=== PATIENT | male | born 1970 | race Caucasian/White ===

== ENCOUNTER 2016-12-29 09:15 | Day surgery (SDC) | payer OTHER ==
[~2016-12-29] VITALS: Ht 185.4 cm; Wt 136.5 kg
[~2016-12-29 09:15] MED LIST: ADVAIR 250/501 DISK IH; AMRIX ER PO; AMRIX30 MG PO; APRISO0.375 GM PO; CARVEDILOL3.125 MG PO; CIPRO500 MG PO; CLOBEX118 ML TP; COREG3.125 M1 PO; COREG6.25 M1 PO; CORLANOR PO; CORLANOR7.5 MG PO; CORTIZONE-10 PL57 GM TP; CORTIZONE-1028 GM TP; CYCLOBENZAPRINE10 MG PO; DAILY VITAMIN1 EAC8 PO; DELZICOL400 MG PO; DIGOXIN250 MCG PO; FENOFIBRATE54 M1 PO; FLAGYL500 MG PO; FLEXERIL10 MG PO; FUROSEMIDE40 MG PO; GLIPIZIDE5 MG PO; HUMULIN R500 UNIT/1 SC; HYDROCODON-ACE1 EAC7 PO; JANUVIA100 MG PO; KADIAN20 MG PO; LANOXIN250 MCG PO; LASIX40 MG PO; LEVAQUIN500 MG PO; LEVEMIR FL100 UNIT/1 SC; LIDODERM 5% P1 PATCH TD; LISINOPRIL2.5 MG PO; LOPRESSOR50 MG PO; LYRICA100 MG PO; LYRICA150 MG PO; METOPROLOL TAR100 MG PO; MOTRIN IB200 MG PO; NORCO 5/3251 TABLET PO; OMEPRAZOLE40 M1 PO; PERCOCET 5/31 TABLET PO; PROMETHAZINE HC25 M1 PO; PROVENTIL,2.5 MG/3 M IH; SPIRIVA1 INHALATI IH; TRADJENTA5 MG PO; VENTOLIN HFA18 GM IH; [UNRECOGNIZED DRUG - OTHER] PO; [UNRECOGNIZED DRUG - OTHER] PO; [UNRECOGNIZED DRUG - OTHER] TP
[2016-12-29 09:49] LABS: POINT-OF-CARE METER ID UU14174212
[2016-12-29 09:52] VITALS: BP 140/70
[2016-12-29] MEDS ORDERED: NORCO 5/3251 TABLET PO (12:55)
[2016-12-29 13:27] LABS: POINT-OF-CARE METER ID UU13113675
[2016-12-29 13:45] VITALS: BP 128/72
== END 2016-12-29 14:30 | disposition home or self-care (01) ==
LOC: SDC 09:15
PROVIDERS: Surgery
DX: L73.2 Hidradenitis suppurativa (principal); R20.0 Anesthesia of skin; E11.9 Type 2 diabetes mellitus without complications; Z79.4 Long term (current) use of insulin; J44.9 Chronic obstructive pulmonary disease, unspecified; I25.10 Atherosclerotic heart disease of native coronary artery without angina pectoris; I50.9 Heart failure, unspecified; D86.9 Sarcoidosis, unspecified; K21.9 Gastro-esophageal reflux disease without esophagitis; M81.0 Age-related osteoporosis without current pathological fracture; M45.9 Ankylosing spondylitis of unspecified sites in spine; M19.90 Unspecified osteoarthritis, unspecified site; F17.200 Nicotine dependence, unspecified, uncomplicated; Z88.6 Allergy status to analgesic agent; Z88.8 Allergy status to other drugs, medicaments and biological substances; Z91.09 Other allergy status, other than to drugs and biological substances; E66.9 Obesity, unspecified; Z68.39 Body mass index [BMI] 39.0-39.9, adult; Z80.8 Family history of malignant neoplasm of other organs or systems; Z80.1 Family history of malignant neoplasm of trachea, bronchus and lung
CPT/HCPCS: 80162; 82948; 88305; J0131; J0690; J2250; J3010; S0020

== ENCOUNTER 2017-03-30 21:50 | Emergency (ER) | payer OTHER ==
[~2017-03-30] VITALS: Ht 185.4 cm; Wt 141.0 kg
[2017-03-30 22:32] LABS: HEMATOCRIT 46.5 % (38.0-50.0); HEMOGLOBIN 16.1 G/DL (12.5-16.6); MCH 30.1 PG (29.0-34.0); MCHC 34.6 G/DL (30.0-36.0); MCV 87.1 FL (86-99); PLATELET COUNT 355 K/uL (156-360); RBC DIS.WIDTH-CV 13.3 % (11.8-14.6); RBC DIS.WIDTH-SD 42.1 % (39-53); RED BLOOD COUNT 5.34 M/uL (4.00-5.50); WHITE BLOOD COUNT 9.3 K/uL (4.1-10.2)
[2017-03-30 22:41] LABS: ALBUMIN 4.4 g/dL (3.2-4.8)
[2017-03-30 22:42] LABS: CHLORIDE 102 mEq/L (99-109); POTASSIUM 4.7 mEq/L (3.7-5.4); SODIUM 136 mEq/L (136-147)
[2017-03-30 22:44] LABS: GLUCOSE 327 mg/dL (70-99); TOTAL PROTEIN 8.8 g/dL (6.4-8.3)
[2017-03-30 22:46] LABS: TOTAL BILIRUBIN 0.4 mg/dL (0.0-1.0)
[2017-03-30 22:47] LABS: ALKALINE PHOSPHATASE 146 IU/L (3-129)
[2017-03-30 22:48] LABS: CREATININE 1.2 mg/dL (0.6-1.3); GFR ESTIMATE (CALCULATED) > 59 mL/min/ (58.99-99999)
[2017-03-30 22:49] LABS: AST (GOT) 29 IU/L (2-34); UREA NITROGEN (BUN) 15 mg/dL (9-23)
[2017-03-30 22:50] LABS: ALT (GPT) 47 IU/L (3-49)
[2017-03-31 01:01] LABS: C-REACTIVE PROTEIN 20.5 MG/L (0-10)
[2017-03-31 02:55] LABS: APPEARANCE CLEAR ((CLEAR)); BILIRUBIN NEGATIVE; BLOOD NEGATIVE; COLOR YELLOW ((YELLOW)); GLUCOSE (STRIP) >=500; KETONES NEGATIVE; LEUKOCYTES NEGATIVE; NITRITE NEGATIVE; PROTEIN (STRIP) NEGATIVE; SPECIFIC GRAVITY 1.021 (1.000-1.030); UCUL ADDED? NO; UROBILINOGEN 0.2 MG/DL (0.2-1.0)
[2017-03-31 04:02] VITALS: BP 114/58
== END 2017-03-31 04:15 | disposition home or self-care (01) ==
LOC: EME 21:50
DX: R10.9 Unspecified abdominal pain (principal); G89.29 Other chronic pain; R19.7 Diarrhea, unspecified; R11.2 Nausea with vomiting, unspecified; R42 Dizziness and giddiness; Z79.891 Long term (current) use of opiate analgesic; K76.0 Fatty (change of) liver, not elsewhere classified; Z90.49 Acquired absence of other specified parts of digestive tract; N28.1 Cyst of kidney, acquired; K40.20 Bilateral inguinal hernia, without obstruction or gangrene, not specified as recurrent; K57.30 Diverticulosis of large intestine without perforation or abscess without bleeding; M51.46 Schmorl's nodes, lumbar region; M45.9 Ankylosing spondylitis of unspecified sites in spine; J44.9 Chronic obstructive pulmonary disease, unspecified; I10 Essential (primary) hypertension; E11.9 Type 2 diabetes mellitus without complications; Z79.4 Long term (current) use of insulin; Z99.81 Dependence on supplemental oxygen; Z86.010 Personal history of colon polyps; F17.200 Nicotine dependence, unspecified, uncomplicated
CPT/HCPCS: 74176; 80053; 81003; 85027; 86140; 99281; 99285; J3010; J7030

== ENCOUNTER 2017-07-09 18:22 | Emergency (ER) | payer OTHER ==
[~2017-07-09] VITALS: Ht 185.4 cm; Wt 147.7 kg
[2017-07-09 18:40] LABS: HEMATOCRIT 49.9 % (38.0-50.0); HEMOGLOBIN 17.3 G/DL (12.5-16.6); MCH 31.5 PG (29.0-34.0); MCHC 34.7 G/DL (30.0-36.0); MCV 90.7 FL (86-99); PLATELET COUNT 228 K/uL (156-360); RBC DIS.WIDTH-CV 13.9 % (11.8-14.6); RBC DIS.WIDTH-SD 46.3 % (39-53); WHITE BLOOD COUNT 11.5 K/uL (4.1-10.2)
[2017-07-09 18:50] LABS: ALBUMIN 4.2 g/dL (3.2-4.8); CHLORIDE 97 mEq/L (99-109); POTASSIUM 4.4 mEq/L (3.7-5.4); SODIUM 138 mEq/L (136-147)
[2017-07-09 18:52] LABS: GLUCOSE 203 mg/dL (70-99); TOTAL PROTEIN 7.7 g/dL (6.4-8.3)
[2017-07-09 18:54] LABS: TOTAL BILIRUBIN 0.7 mg/dL (0.0-1.0)
[2017-07-09 18:56] LABS: ALKALINE PHOSPHATASE 113 IU/L (3-129); CREATININE 1.1 mg/dL (0.6-1.3); GFR ESTIMATE (CALCULATED) > 59 mL/min/ (58.99-99999)
[2017-07-09 18:57] LABS: UREA NITROGEN (BUN) 18 mg/dL (9-23)
[2017-07-09 18:58] LABS: AST (GOT) 47 IU/L (2-34)
[2017-07-09 18:59] LABS: ALT (GPT) 140 IU/L (3-49)
[2017-07-09 20:06] LABS: LIPASE 30 U/L (1.0-51.0)
[2017-07-09] MEDS ORDERED: PREDNISONE20 MG PO (21:06)
[2017-07-09 21:30] LABS: APPEARANCE CLEAR ((CLEAR)); BILIRUBIN NEGATIVE; BLOOD NEGATIVE; COLOR YELLOW ((YELLOW)); GLUCOSE (STRIP) >=500; KETONES NEGATIVE; LEUKOCYTES NEGATIVE; NITRITE NEGATIVE; PROTEIN (STRIP) NEGATIVE; SPECIFIC GRAVITY 1.032 (1.000-1.030); UCUL ADDED? NO; UROBILINOGEN 0.2 MG/DL (0.2-1.0)
[2017-07-09 22:31] VITALS: BP 128/74
== END 2017-07-09 22:32 | disposition home or self-care (01) ==
LOC: EME 18:22
PROVIDERS: Physician Assistant
DX: R10.30 Lower abdominal pain, unspecified (principal); R19.7 Diarrhea, unspecified; K50.90 Crohn's disease, unspecified, without complications; I10 Essential (primary) hypertension; I50.9 Heart failure, unspecified; E11.9 Type 2 diabetes mellitus without complications; Z79.4 Long term (current) use of insulin; J44.9 Chronic obstructive pulmonary disease, unspecified; K21.9 Gastro-esophageal reflux disease without esophagitis; M81.0 Age-related osteoporosis without current pathological fracture; G43.909 Migraine, unspecified, not intractable, without status migrainosus; M19.90 Unspecified osteoarthritis, unspecified site; F32.9 Major depressive disorder, single episode, unspecified; F17.200 Nicotine dependence, unspecified, uncomplicated; Z79.51 Long term (current) use of inhaled steroids; Z90.49 Acquired absence of other specified parts of digestive tract; Z85.9 Personal history of malignant neoplasm, unspecified; Z88.6 Allergy status to analgesic agent; Z88.8 Allergy status to other drugs, medicaments and biological substances; Z91.040 Latex allergy status
CPT/HCPCS: 74177; 80053; 81003; 82948; 83690; 85027; 99281; 99285; J2405; J7040; J7512

== ENCOUNTER 2017-08-12 22:50 | Inpatient (IN) | payer OTHER ==
[~2017-08-12] VITALS: Ht 185.4 cm; Wt 154.1 kg
[~2017-08-12 22:50] MED LIST changes: +PREDNISONE20 MG PO
[2017-08-12 23:31] LABS: BASOPHIL (%) 1.6 % (0-1); BASOPHIL COUNT 0.2 K/uL (0-0.1); EOSINOPHIL (%) 0.8 % (0-5); EOSINOPHIL COUNT 0.1 K/uL (0-0.3); HEMATOCRIT 48.3 % (38.0-50.0); IMMATURE GRANULOCYTE (%) 2.8 % (0.0-0.7); LYMPHOCYTE (%) 18.4 % (15-42); LYMPHOCYTE COUNT 2.1 K/uL (1.0-2.8); MCH 32.1 PG (29.0-34.0); MCHC 35.2 G/DL (30.0-36.0); MCV 91.1 FL (86-99); MONOCYTE COUNT 0.8 K/uL (0-0.8); NEUTROPHIL (%) 69.4 % (45-76); NEUTROPHIL COUNT 7.8 K/uL (1.8-6.4); RBC DIS.WIDTH-CV 13.6 % (11.8-14.6); RBC DIS.WIDTH-SD 45.5 % (39-53); WHITE BLOOD COUNT 11.2 K/uL (4.1-10.2)
[2017-08-12 23:32] LABS: PLATELET COUNT 233 K/uL (156-360)
[2017-08-12 23:42] LABS: ALBUMIN 3.8 g/dL (3.2-4.8); CHLORIDE 102 mEq/L (99-109); POTASSIUM 4.3 mEq/L (3.7-5.4); SODIUM 137 mEq/L (136-147)
[2017-08-12 23:44] LABS: GLUCOSE 231 mg/dL (70-99)
[2017-08-12 23:46] LABS: TOTAL BILIRUBIN 0.9 mg/dL (0.0-1.0)
[2017-08-12 23:47] LABS: SERUM ETHYL ALCOHOL < 10 mg/dL
[2017-08-12 23:48] LABS: ALKALINE PHOSPHATASE 104 IU/L (3-129); GFR ESTIMATE (CALCULATED) > 59 mL/min/ (58.99-99999)
[2017-08-12 23:49] LABS: AST (GOT) 80 IU/L (2-34); UREA NITROGEN (BUN) 14 mg/dL (9-23)
[2017-08-12 23:51] LABS: ALT (GPT) 138 IU/L (3-49); LIPASE 20 U/L (1.0-51.0)
[2017-08-12 23:54] LABS: TROP-I INTERPRETATION NEGATIVE; TROPONIN-I 0.01 ng/mL (0.0-0.30)
[2017-08-13 00:21] LABS: APPEARANCE CLEAR ((CLEAR)); BILIRUBIN NEGATIVE; BLOOD NEGATIVE; COLOR YELLOW ((YELLOW)); GLUCOSE (STRIP) >=500; KETONES NEGATIVE; LEUKOCYTES NEGATIVE; NITRITE NEGATIVE; PROTEIN (STRIP) 30; SPECIFIC GRAVITY 1.014 (1.000-1.030); UCUL ADDED? NO; UROBILINOGEN 0.2 MG/DL (0.2-1.0)
[2017-08-13 00:31] LABS: AMPHETAMINE NEGATIVE (500 ng/mL); BARBITURATES NEGATIVE (200 ng/mL); BENZODIAZEPINES NEGATIVE (150 ng/mL); BUPRENORPHINE NEGATIVE (10 ng/mL); COCAINE NEGATIVE (150 ng/mL); METHADONE NEGATIVE (200 ng/mL); METHAMPHETAMINE NEGATIVE (500 ng/mL); OPIATES (MORPHINE) PRESUMPTIVE POSITIVE (100 ng/mL); OXYCODONE NEGATIVE (100 ng/mL); PHENCYCLIDINE NEGATIVE (25 ng/mL); PROPOXYPHENE NEGATIVE (300 ng/mL); THC CANNABINOIDS NEGATIVE (50 ng/mL); TRICYCLIC ANTIDEPRESSANTS NEGATIVE (300 ng/mL)
[2017-08-13 04:14] VITALS: BP 95/54
[2017-08-13 07:40] VITALS: BP 115/58
[2017-08-13 11:17] LABS: C DIFF TOXIN NEGATIVE (NEGATIVE)
[2017-08-13 11:31] VITALS: BP 148/89
[2017-08-13 11:40] LABS: HEMATOCRIT 45.9 % (38.0-50.0); HEMOGLOBIN 15.3 G/DL (12.5-16.6); MCHC 33.3 G/DL (30.0-36.0); MCV 93.1 FL (86-99); PLATELET COUNT 222 K/uL (156-360); RBC DIS.WIDTH-SD 47.6 % (39-53); RED BLOOD COUNT 4.93 M/uL (4.00-5.50); WHITE BLOOD COUNT 8.1 K/uL (4.1-10.2)
[2017-08-13 12:06] LABS: ALBUMIN 3.5 G/DL (3.2-4.8); ALKALINE PHOSPHATASE 87 IU/L (3-129); ALT (GPT) 94 IU/L (3-49); AST (GOT) 54 IU/L (2-34); CHLORIDE 103 MEQ/L (99-109); CREATININE 0.9 MG/DL (0.6-1.3); GFR ESTIMATE (CALCULATED) > 59 mL/min/ (58.99-99999); GLUCOSE 264 mg/dL (70-99); POTASSIUM 4.8 MEQ/L (3.7-5.4); SODIUM 136 MEQ/L (136-147); TOTAL PROTEIN 6.1 G/DL (6.4-8.3); UREA NITROGEN (BUN) 12 mg/dL (9-23)
[2017-08-13] MEDS ORDERED: KADIAN30 MG PO (12:06)
[2017-08-13] MEDS ORDERED: APRISO0.375 GM PO (12:07)
[2017-08-13] MEDS ORDERED: CORLANOR7.5 MG PO (12:07)
[2017-08-13] MEDS ORDERED: DOXYCYCLINE MO100 M1 PO (12:08)
[2017-08-13] MEDS ORDERED: ERGOCALCIF50000 UNIT PO (12:08)
[2017-08-13] MEDS ORDERED: CLOBEX118 ML TP (12:09)
[2017-08-13] MEDS ORDERED: ENDOCET 5-3251 EACH PO (12:09)
[2017-08-13 16:05] VITALS: BP 108/57
[2017-08-13 19:53] VITALS: BP 132/79
[2017-08-14 00:28] VITALS: BP 119/78
[2017-08-14 04:35] VITALS: BP 104/55
[2017-08-14 05:57] LABS: C-REACTIVE PROTEIN 13.1 MG/L (0-10)
[2017-08-14 07:30] VITALS: BP 108/61
[2017-08-14 07:31] LABS: HEMATOCRIT 46.8 % (38.0-50.0); HEMOGLOBIN 15.4 G/DL (12.5-16.6); MCH 31.5 PG (29.0-34.0); MCHC 32.9 G/DL (30.0-36.0); MCV 95.7 FL (86-99); NRBC (%) 0.2 /100 WBC (0-0); PLATELET COUNT 248 K/uL (156-360); RBC DIS.WIDTH-SD 49.5 % (39-53); RED BLOOD COUNT 4.89 M/uL (4.00-5.50); WHITE BLOOD COUNT 8.4 K/uL (4.1-10.2)
[2017-08-14 07:44] LABS: ALBUMIN 3.8 G/DL (3.2-4.8); ALKALINE PHOSPHATASE 92 IU/L (3-129); ALT (GPT) 85 IU/L (3-49); AST (GOT) 44 IU/L (2-34); CHLORIDE 106 MEQ/L (99-109); CREATININE 0.9 MG/DL (0.6-1.3); GFR ESTIMATE (CALCULATED) > 59 mL/min/ (58.99-99999); GLUCOSE 58 mg/dL (70-99); POTASSIUM 4.3 MEQ/L (3.7-5.4); SODIUM 140 MEQ/L (136-147); TOTAL BILIRUBIN 0.6 MG/DL (0.0-1.0); TOTAL PROTEIN 6.5 G/DL (6.4-8.3); UREA NITROGEN (BUN) 9 mg/dL (9-23)
[2017-08-14 10:19] LABS: HEMOGLOBIN A1c (GLYCOHEMOGLOB) 9.6 % (Below 5.7)
[2017-08-14] MEDS ORDERED: DELZICOL400 M1 PO (11:52)
[2017-08-14 13:07] VITALS: BP 105/57
[2017-08-14 15:34] VITALS: BP 111/67
== END 2017-08-14 17:29 | disposition home or self-care (01) | DRG 386 ==
LOC: EME 22:50 → EDOF 08-13 03:00 → ENRESERV 08-13 03:04 → 4SOUTH 08-13 04:04
PROVIDERS: Emergency Medicine; Hospitalist; Internal Medicine Gastroenterology; Physician Assistant Medical
DX: K50.118 Crohn's disease of large intestine with other complication (principal); I42.9 Cardiomyopathy, unspecified; I50.22 Chronic systolic (congestive) heart failure; Z68.42 Body mass index [BMI] 45.0-49.9, adult; F17.210 Nicotine dependence, cigarettes, uncomplicated; E86.0 Dehydration; E11.9 Type 2 diabetes mellitus without complications; D86.9 Sarcoidosis, unspecified; E66.01 Morbid (severe) obesity due to excess calories; G25.81 Restless legs syndrome; F41.0 Panic disorder [episodic paroxysmal anxiety]; G47.30 Sleep apnea, unspecified; G89.29 Other chronic pain; I11.0 Hypertensive heart disease with heart failure; K21.9 Gastro-esophageal reflux disease without esophagitis; M81.0 Age-related osteoporosis without current pathological fracture; K76.0 Fatty (change of) liver, not elsewhere classified; M45.9 Ankylosing spondylitis of unspecified sites in spine; L73.2 Hidradenitis suppurativa; R19.7 Diarrhea, unspecified; Z87.11 Personal history of peptic ulcer disease; Z79.4 Long term (current) use of insulin; Z91.041 Radiographic dye allergy status; Z88.6 Allergy status to analgesic agent; Z90.49 Acquired absence of other specified parts of digestive tract
CPT/HCPCS: 70450; 71045; 71250; 74176; 80053; 81003; 82948; 83036; 83605; 83630; 83690; 84484; 84999; 85025; 85027; 86140; 87177; 87329; 87493; 87506; 93005; 94640; 94640 76; 94799; 99202; 99281; 99285; G0480; J1650; J1815; J2405; J3010; J7030